=== PATIENT | female | born 1965 | race Caucasian/White ===

== ENCOUNTER → 2017-08-08 | Outpatient (CLI) | payer OTHER ==
[~2017-08-08] MED LIST: ALBU8.5H IH; CHOL100052 PO; DUL100/5PT INH; HYDR25 PO; IBUP-2704 PO; LEVO137T22 PO; LEVO150T7 PO; LEVO150T72 PO; LEVO1TAB32 PO; LIO5 PO; LISI20TA29 PO; LOS50 PO; LOSA50TA67 PO; MEL7.5 PO; MELO-149 PO; MOME220A2 INH; MONT10TA PO; OMEP40CA45 PO; OXYC-865 PO; POTA20TA85 PO; POTASSIUM PO; PRE20 PO; SPI25 PO; SPIR25TA78 PO; THYR120T10 PO
== END ==
LOC: LAB 13:39
PROVIDERS: ATTEND Family Medicine
DX: C73 Malignant neoplasm of thyroid gland (principal)
CPT/HCPCS: 36415; 86800

== ENCOUNTER → 2017-09-17 | Outpatient (CLI) | payer OTHER ==
[~2017-09-17] MED LIST changes: -SPIR25TA78 PO; +SPIR25TA80 PO
--- NOTE | 2017-09-17 16:08 | RADIOLOGY IMAGING REPORT ---
[place]AC[place] [facility] [place]IENT NAME: STACY VARGAS : [id number] MR: [id number] V: [id number] EXAM DATE: [id number] ORDERING PHYSICIAN: THERESA CARBAJAL TECHNOLOGIST: Aliza Pinon PROCEDURE:BILATERAL DIGITAL SCREENING MAMMOGRAM WITH CAD ASSISTED INTERPRETATION & 3D TOMOSYNTHESIS COMPARISON:Prior mammograms 10/03/15, 09/21/14, 08/17/13, 08/28/11. INDICATIONS:screening FINDINGS: Moderately dense heterogeneous fibroglandular tissue is seen throughout the breasts. In the medial portion of the Right breast on the Right CC view at the junction of the middle and posterior 1/3's there is an area of spiculation and architectural distortion, small microcalcifications appear slightly more prominent when compared to the prior study. This best appreciated on Tomographic slice 29. This area appears to be etched about the mid nipple line on the Right MLO view and best appreciated on Tomographic slice 46. The patient does give a history of a prior benign Right breast biopsy. This likely represents an area of postsurgical scaring as biopsy scar markers were in this general location on prior mammograms. The remainder of the parenchymal pattern has remained stable. DIAGNOSTIC CATEGORY 2--BENIGN FINDING. RECOMMENDATIONS: ROUTINE MAMMOGRAM AND CLINICAL EVALUATION. IMPRESSION: BIRADS 2: Benign finding. No significant abnormality is seen. Dictated by: Ila Starks M.D. on 09/17/2017 at 10:00 Transcribed by: SIMONE on 09/17/2017 at 10:21 Approved by: Ila Starks M.D. on 09/17/2017 at 16:07 [facility]
== END ==
LOC: MAMO 02:02
PROVIDERS: ATTEND Family Medicine
DX: Z12.31 Encounter for screening mammogram for malignant neoplasm of breast (principal); R92.1 Mammographic calcification found on diagnostic imaging of breast
CPT/HCPCS: 77063; 77067

== ENCOUNTER → 2018-09-07 | Outpatient (CLI) | payer OTHER ==
--- NOTE | 2018-09-07 16:12 | RADIOLOGY IMAGING REPORT ---
FACILITY: [facility] PATIENT NAME: Torie Albert : 1965 MR: [id number] V: [id number] EXAM DATE: ORDERING PHYSICIAN: THERESA CARBAJAL TECHNOLOGIST: Location: [facility] - [place] Patient: Torie Albert : 1965 Visit/Account:[id number] Date of Sevice: 09/07/2018 PELVIC HISTORY: Right lower quadrant pain TECHNIQUE: There has been satisfactory transvaginal/transabdominal ultrasonic evaluation of the pelvi s. Transabdominal imaging was utilized to visualize the pelvic floor and ovaries COMPARISON: And 06/07/2016 FINDINGS: Uterus: Surgically removed Ovaries: Right - measures 3.1 x 3.0 x 2.6 cm. Simple appearing cyst noted within the right ovary measuri ng 3.3 x 2.2 x 2.8 cm Left - measures 2.5 x 2.0 x 1.9 cm Blood flow is documented in each ovary by duplex Doppler ultrasound. Adnexa: Small free fluid adjacent to the right ovary. Free pelvic fluid: None. Bladder: Distended. IMPRESSION: 1. Status post hysterectomy with a simple appearing right-sided ovarian cyst measuring 3.3 x 2.2 x 2 .8 cm. This likely benign. Yearly follow-up ultrasound is recommended. 2. Trace free fluid adjacent to the right ovary. Report Dictated By: Taz Albarran DO at 09/07/2018 3:59 PM Report E-Signed By: Taz Albarran DO at 09/07/2018 4:04 PM WSN:[id number]
== END ==
LOC: US 01:18
PROVIDERS: ATTEND Family Medicine
DX: N83.291 Other ovarian cyst, right side (principal); C73 Malignant neoplasm of thyroid gland
CPT/HCPCS: 36415; 76856; 86800